=== PATIENT | female | born 1965 | race Two or more races ===

== ENCOUNTER 2021-12-26 20:24 | Emergency (ER) | payer OTHER ==
[~2021-12-26] VITALS: Ht 157.5 cm; Wt 68.0 kg
[2021-12-27] MEDS ORDERED: MIRALAX510 GM PO (00:20)
[2021-12-27] MEDS ORDERED: PEPCID AC20 MG PO (00:20)
[2021-12-27] MEDS ORDERED: LEVSIN/SL0.125 MG SL (00:20)
== END 2021-12-27 01:05 | disposition home or self-care (01) ==
LOC: ER 20:24
DX: R10.11 Right upper quadrant pain (principal); K76.89 Other specified diseases of liver; Z88.0 Allergy status to penicillin

== ENCOUNTER 2022-01-27 02:05 | Emergency (ER) | payer OTHER ==
[~2022-01-27] VITALS: Ht 152.4 cm; Wt 68.0 kg
[~2022-01-27 02:05] MED LIST: LEVSIN/SL0.125 MG SL; MIRALAX510 GM PO; PEPCID AC20 MG PO
[2022-01-27] MEDS ORDERED: KETO10TA2 PO (04:48)
[2022-01-27] MEDS ORDERED: ORPHENADRINE C100 MG PO (04:48)
== END 2022-01-27 04:57 | disposition home or self-care (01) ==
LOC: ER 02:05
DX: M25.512 Pain in left shoulder (principal); Z88.0 Allergy status to penicillin

== ENCOUNTER 2022-04-02 16:30 | Emergency (ER) | payer OTHER ==
[~2022-04-02] VITALS: Ht 160 cm; Wt 68.0 kg
[~2022-04-02 16:30] MED LIST changes: +KETO10TA2 PO; +ORPHENADRINE C100 MG PO
== END 2022-04-02 20:43 | disposition home or self-care (01) ==
LOC: ER 16:30
DX: U07.1 COVID-19 (principal); Z88.0 Allergy status to penicillin

== ENCOUNTER 2022-04-28 17:17 | Emergency (ER) | payer OTHER ==
[~2022-04-28] VITALS: Ht 160 cm; Wt 68.5 kg
== END 2022-04-28 22:13 | disposition home or self-care (01) ==
LOC: ER 17:17
DX: J04.0 Acute laryngitis (principal); Z88.0 Allergy status to penicillin; Z20.822 Contact with and (suspected) exposure to COVID-19

== ENCOUNTER 2022-05-11 16:24 | Emergency (ER) | payer OTHER ==
[~2022-05-11] VITALS: Ht 160 cm; Wt 68.0 kg
== END 2022-05-11 18:23 | disposition home or self-care (01) ==
LOC: ER 16:24
DX: J04.0 Acute laryngitis (principal); Z88.8 Allergy status to other drugs, medicaments and biological substances

== ENCOUNTER 2022-05-14 23:44 | Emergency (ER) | payer OTHER ==
[~2022-05-14] VITALS: Ht 160 cm; Wt 68.0 kg
[2022-05-15] MEDS ORDERED: ORASEP SPRAY30 ML MM (00:58)
== END 2022-05-15 01:17 | disposition home or self-care (01) ==
LOC: ER 23:44
DX: J04.0 Acute laryngitis (principal); Z88.8 Allergy status to other drugs, medicaments and biological substances

== ENCOUNTER 2022-07-27 05:51 | Emergency (ER) | payer OTHER ==
[~2022-07-27] VITALS: Ht 160 cm; Wt 67.1 kg
[~2022-07-27 05:51] MED LIST changes: +ORASEP SPRAY30 ML MM
== END 2022-07-27 09:30 | disposition home or self-care (01) ==
LOC: ER 05:51
DX: R10.11 Right upper quadrant pain (principal)

== ENCOUNTER 2022-07-31 14:20 | Emergency (ER) | payer OTHER ==
[~2022-07-31] VITALS: Ht 160 cm; Wt 66.7 kg
== END 2022-07-31 16:18 | disposition home or self-care (01) ==
LOC: ER 14:20
DX: L50.9 Urticaria, unspecified (principal); Z88.0 Allergy status to penicillin

== ENCOUNTER 2022-08-01 06:09 | Outpatient (CLI) | payer OTHER | END 2022-08-01 06:21 | disposition home or self-care (01) | LOC: LAB 06:09 | DX: R10.9 Unspecified abdominal pain (principal) ==

== ENCOUNTER 2022-08-19 08:36 | Outpatient (CLI) | payer OTHER | END 2022-08-19 08:45 | disposition home or self-care (01) | LOC: NUCLEAR 08:36 | PROVIDERS: ATTEND General Practice | DX: K82.8 Other specified diseases of gallbladder (principal); R10.9 Unspecified abdominal pain ==

== ENCOUNTER 2022-08-21 12:57 | Emergency (ER) | payer OTHER ==
[~2022-08-21] VITALS: Ht 160 cm; Wt 66.7 kg
[2022-08-21] MEDS ORDERED: MUCINEX DM ER1 EACH PO (15:50)
== END 2022-08-21 16:12 | disposition home or self-care (01) ==
LOC: ER 12:57
DX: B34.9 Viral infection, unspecified (principal); Z20.822 Contact with and (suspected) exposure to COVID-19; Z88.0 Allergy status to penicillin

== ENCOUNTER 2022-08-27 22:06 | Emergency (ER) | payer OTHER ==
[~2022-08-27] VITALS: Ht 167.6 cm; Wt 66.7 kg
[~2022-08-27 22:06] MED LIST changes: +MUCINEX DM ER1 EACH PO
== END 2022-08-27 22:43 | disposition home or self-care (01) ==
LOC: ER 22:06
DX: M79.672 Pain in left foot (principal); Z88.8 Allergy status to other drugs, medicaments and biological substances

== ENCOUNTER 2022-09-02 19:33 | Emergency (ER) | payer OTHER ==
[~2022-09-02] VITALS: Ht 160 cm; Wt 68.0 kg
[2022-09-02] MEDS ORDERED: PREDNISOLO15 MG/5 ML PO (20:05)
== END 2022-09-02 23:27 | disposition home or self-care (01) ==
LOC: ER 19:33
DX: R49.0 Dysphonia (principal); Z88.8 Allergy status to other drugs, medicaments and biological substances

== ENCOUNTER → 2022-09-29 06:09 | Outpatient (CLI) | payer OTHER ==
[~2022-09-29 06:09] MED LIST changes: +PREDNISOLO15 MG/5 ML PO
== END | disposition home or self-care (01) ==
LOC: LAB 06:09
DX: K76.89 Other specified diseases of liver (principal)

== ENCOUNTER 2023-04-28 20:00 | Emergency (ER) | payer OTHER ==
[~2023-04-28] VITALS: Ht 160 cm; Wt 70.8 kg
== END 2023-04-28 23:32 | disposition home or self-care (01) ==
LOC: ER 20:00
DX: K21.9 Gastro-esophageal reflux disease without esophagitis (principal)